=== PATIENT | female | born 1940 | race Caucasian/White ===

== ENCOUNTER 2017-12-18 13:07 | Day surgery (SDC) | payer MEDICARE, BC ==
[~2017-12-18] VITALS: Ht 170.2 cm; Wt 74.6 kg
[2017-12-18 13:39] VITALS: BP 138/73; PULSE 76; TEMP 98.1
[2017-12-18] MEDS ORDERED: ZETIA 10MG TAB10 MG PO (13:43)
[2017-12-18] MEDS ORDERED: PRINIVIL5 MG PO (13:43)
[2017-12-18] MEDS ORDERED: XARELTO20 MG PO (13:43)
[2017-12-18] MEDS ORDERED: COREG 3.123.125 MG/T PO (13:44)
[2017-12-18] MEDS ORDERED: CELEXA 20MG20 MG/TAB PO (13:44)
[2017-12-18] MEDS ORDERED: ZOCOR 40MG40 MG PO (13:45)
[2017-12-18] MEDS ORDERED: ACIPHEX20 MG PO (13:45)
[2017-12-18] MEDS ORDERED: ATIVAN 1MG T1 MG/TAB PO (13:46)
[2017-12-18] MEDS ORDERED: STOOL SOFTENER100 M2 PO (13:46)
[2017-12-18] MEDS ORDERED: DESYREL 50MG50 MG PO (13:46)
[2017-12-18] MEDS ORDERED: CITRACAL + D CA1 TAB PO (13:47)
[2017-12-18] MEDS ORDERED: COLON HEALTH PO (13:47)
[2017-12-18] MEDS ORDERED: OCUVITE1 TA1 PO (13:48)
[2017-12-18] MEDS ORDERED: VITAMIN D3400 I1 PO (13:48)
[2017-12-18] MEDS ORDERED: PREDNISONE10 MG PO (13:49)
[2017-12-18] MEDS ORDERED: VSL#3112.5 Bill PO (13:49)
[2017-12-18 16:35] VITALS: BP 149/65; PULSE 69; TEMP 97.5
[2017-12-18 16:50] VITALS: BP 147/72; PULSE 77
[2017-12-18 17:05] VITALS: BP 154/67; PULSE 80
[2017-12-19 08:19] VITALS: BP 151/75; PULSE 72
== END 2017-12-18 17:43 | disposition home or self-care (01) ==
LOC: SDCO 13:07
DX: R10.9 Unspecified abdominal pain (principal); R31.0 Gross hematuria; N39.41 Urge incontinence; F32.9 Major depressive disorder, single episode, unspecified; Z86.718 Personal history of other venous thrombosis and embolism; Z86.711 Personal history of pulmonary embolism; Z79.01 Long term (current) use of anticoagulants; I25.10 Atherosclerotic heart disease of native coronary artery without angina pectoris; G47.30 Sleep apnea, unspecified; E78.00 Pure hypercholesterolemia, unspecified; I25.2 Old myocardial infarction; I10 Essential (primary) hypertension; K21.9 Gastro-esophageal reflux disease without esophagitis; Z95.5 Presence of coronary angioplasty implant and graft; Z79.899 Other long term (current) drug therapy; Z80.1 Family history of malignant neoplasm of trachea, bronchus and lung; Z80.3 Family history of malignant neoplasm of breast
CPT/HCPCS: C1769; J0690; J1100; J2405; J2704; J3010; J7120; Q9967